=== PATIENT | female | born 1960 | race Two or more races ===

== ENCOUNTER 2016-07-26 07:42 | Emergency (ER) | payer MEDICAID ==
[~2016-07-26] VITALS: Ht 165.1 cm; Wt 81.6 kg
[2016-07-26] MEDS ORDERED: Ketorolac 60mg Inj IM ONE (08:15)
[2016-07-26 09:15] LABS: APPEARANCE,URINE CLEAR; KETONES,URINE NEGATIVE (NEGATIVE); LEUKOCYTE ESTERASE ,URINE 1+ (NEGATIVE); NITRITE,URINE NEGATIVE (NEGATIVE); PH,URINE 5 (4.5-8.0); PROTEIN,URINE NEGATIVE (NEGATIVE); UROBILINOGEN,URINE NORMAL MG/DL (0.0-1.0)
[2016-07-26 09:23] LABS: RBC,URINE 0-2 /HPF (0 - 2); SQUAMOUS EPITHELIAL CELL,UR FEW /LPF (NONE/OCC); WBC,URINE 0-2 /HPF (0 - 2)
[2016-07-26 09:24] LABS: BACTERIA,URINE FEW /HPF
[2016-07-26 09:29] LABS: BASOPHILS % (AUTO) 1.3 % (0.0-2.0); EOSINOPHILS % (AUTO) 3.6 % (0.0-3.0); LYMPHOCYTES % (AUTO) 33.3 % (20.0-45.0); MEAN CORPUSCULAR HEMOGLOBIN 29.6 PG (27.0-31.0); MEAN CORPUSCULAR HGB CONC 32.3 G/DL (32.0-36.0); MEAN CORPUSCULAR VOLUME 92 FL (80-99); MEAN PLATELET VOLUME 7.9 FL (6.5-10.1); MONOCYTES % (AUTO) 6.2 % (1.0-10.0); NEUTROPHILS % (AUTO) 55.7 % (45.0-75.0); PLATELET COUNT 245 K/UL (150-450); RED BLOOD COUNT 4.63 M/UL (4.20-5.40); RED CELL DISTRIBUTION WIDTH 11.9 % (11.6-14.8); WHITE BLOOD COUNT 5.2 K/UL (4.8-10.8)
[2016-07-26 09:41] LABS: ALANINE AMINOTRANSFERASE 31 U/L (3-33); ALBUMIN/GLOBULIN RATIO 1.3 (1.0-2.7); ANION GAP 15 (5-15); ASPARTATE AMINO TRANSFERASE 28 U/L (5-40); CALCIUM 9.7 mg/dL (8.6-10.2); CARBON DIOXIDE 24 mEQ/L (20-30); CHLORIDE 103 mEQ/L (98-107); CREATININE 0.6 mg/dL (0.5-0.9); GLOMERULAR FILTRATION RATE > 60 mL/min (>60); HEMOLYSIS 2; SODIUM 142 mEQ/L (135-145); TOTAL PROTEIN 7.1 g/dL (6.6-8.7)
[2016-07-26 10:13] VITALS: BP 145/75
[2016-07-26] MEDS ORDERED: Norco 5mg/325mg tab ORAL ONE (11:30)
--- NOTE | 2016-07-26 11:33 | Diagnostic Imaging Report ---
Indication: Back pain Comparison: None Findings: 3 views of the lumbar spine were obtained. Multilevel narrowing of intervertebral disks and associated endplate and Facet osteophytes are present. No malalignment identified. No acute fracture definitely seen. Impression: Mild spondylosis. No acute injury appreciated.
[2016-07-26 13:30] VITALS: BP 135/77
--- NOTE | 2016-07-26 14:15 | Diagnostic Imaging Report ---
Indication: Back pain Technique: MRI examination of the Lumbar spine was performed in a 1.5 Aspen magnet. Sequences obtained include sagittal and axial T1 and T2 fast spin echo, and sagittal STIR. No IV gadolinium was given Comparison: none Findings: T12-L1 demonstrates narrowing and desiccation of the disc. There is a right paracentral/far lateral disc protrusion. There is slight narrowing of the right lateral recess and neural foramen. Conus medullaris is noted and appears normal as does the visualized part of the distal spinal cord. Cauda equina is unremarkable. L1-2 is unremarkable except for hypertrophy facets which appear moderate at this level. L2-3 demonstrates a concentric wide based bulge. There is moderate facet arthropathy at this level. Desiccation and narrowing of intervertebral disc noted. Mild central stenosis and moderate narrowing of the lateral recess demonstrated as well as mild bilateral foraminal stenosis. L3-4: Disc desiccation and narrowing, concentric disc bulge demonstrated. Hypertrophied facets demonstrated. A moderate central spinal stenosis, moderate lateral recess stenosis and foraminal stenosis demonstrated bilaterally worse on the left. L4-5: Disc desiccation and narrowing, moderate facet arthropathy concentric disc bulge, moderate to severe central and lateral recess stenosis and neural foraminal narrowing. L5-S1: Relatively normal height of the disc which appears partially desiccated. There is a concentric disc bulge present. Moderate facet hypertrophy noted. There is no central canal stenosis. There is moderate narrowing of the lateral recess and moderate to severe foraminal stenosis. Bone marrow signal and overall lumbar spine alignment appear normal. There is no evidence of fracture or other evidence of acute injury. Spinal ligaments are grossly unremarkable in appearance. There is no soft tissue swelling or abnormal fluid collections. Impression: No evidence of acute injury. No evidence of compression of the cord or cauda equina. Moderate to severe central, lateral recess and neural foraminal stenosis of varying degrees at different levels due to chronic degenerative factors. Findings discussed with Dr. Renee Pradhan via telephone.
--- NOTE | 2016-07-26 14:35 | Emergency Room Report ---
History of Present Illness General Chief Complaint: Lower Back Pain or Injury Source: Patient Present Illness HPI Patient states that she has had ongoing back pain. She states that over the past 3 weeks the pain has been more severe. She is a has pain shooting down her left leg. She states she also has pain in her left buttock. She states that her left leg is weak and has given out on her and has caused her to fall. She denies fever or chills. She denies recent trauma. She denies loss of bowel or bladder control. She denies dysuria or hematuria. She also states that she has abdominal pain. She states this is been chronic and ongoing. Of note: This history was obtained via the rehabilitation physician phone. Allergies: Coded Allergies: No Known Allergies (Unverified , 07/26/16) Patient History Past Medical History: see triage record, HTN, other - HLP Social History: Denies: alcohol use, drug use, smoking Reviewed Nursing Documentation: PMH: Agreed, PSxH: Agreed Nursing Documentation-PMH Past Medical History: No History, Except For Hx Hypertension: Yes Review of Systems All Other Systems: negative except mentioned in HPI Physical Exam Vital Signs Date Time Temp Pulse Resp B/P Pulse Ox O2 Delivery O2 Flow Rate FiO2 07/26/16 07:49 97.5 71 18 144/77 98 Room Air Sp02 EP Interpretation: reviewed, normal General Appearance: no apparent distress, alert, GCS 15, non-toxic Head: normocephalic, atraumatic Eyes: bilateral eye PERRL, bilateral eye normal inspection ENT: hearing grossly normal, normal pharynx, no angioedema, normal voice Neck: full range of motion, supple/symm/no masses Respiratory: chest non-tender, lungs clear, normal breath sounds, speaking full sentences Cardiovascular #1: regular rate, rhythm, no edema Gastrointestinal: normal bowel sounds, soft, non-distended, no guarding, no rebound, tenderness - Mild ttp diffusely Rectal: deferred Genitourinary: no CVA tenderness Musculoskeletal: back normal, normal range of motion, other - TTP over the L. piriformis m. Neurologic: alert, oriented x3, responsive, sensory intact, speech normal, motor weakness - LLE hip flexion, knee extension, plantar flexion 4/5 MS. Psychiatric: judgement/insight normal, memory normal, mood/affect normal, no suicidal/homicidal ideation Skin: normal color, no rash, warm/dry, well hydrated Medical Decision Making Diagnostic Impression: Primary Impression: Spinal stenosis of lumbar region Additional Impressions: Sciatica of left side Abdominal pain ER Course This patient presented with back pain and left leg weakness. Given the difference in strength between the 2 legs, I felt that I should obtain an MRI of the lumbar spine to further assess the spinal cord. MRI of the lumbar spine showed significant spinal stenosis from L2-L5. The patient also has symptoms of sciatica and piriformis syndrome. Regardless, there is no acute findings. The patient also complained of abdominal pain, as obtain a CT of the abdomen and pelvis and there was no acute findings either. The patient is noted to have a left kidney stone but this is inside the kidney are not the patient's symptoms. Laboratory workup on this patient is benign to include CBC, CMP and urinalysis. At this time, I did not identify an emergency medical condition. The patient is instructed to follow up closely with an orthopedist and her primary care physician. Labs Test 07/26/16 08:30 07/26/16 09:09 Urine Color Pale yellow Urine Appearance Clear Urine pH 5 (4.5-8.0) Urine Specific [place] 1.010 (1.005-1.035) Urine Protein Negative (NEGATIVE) Urine Glucose (UA) Negative (NEGATIVE) Urine Ketones Negative (NEGATIVE) Urine Occult Blood Negative (NEGATIVE) Urine Nitrite Negative (NEGATIVE) Urine Bilirubin Negative (NEGATIVE) Urine Urobilinogen Normal MG/DL (0.0-1.0) Urine Leukocyte Esterase 1+ (NEGATIVE) Urine RBC 0-2 /HPF (0 - 2) Urine WBC 0-2 /HPF (0 - 2) Urine Squamous Epithelial Cells Few /LPF (NONE/OCC) Urine Bacteria Few /HPF (NONE) White Blood Count 5.2 K/UL (4.8-10.8) Red Blood Count 4.63 M/UL (4.20-5.40) Hemoglobin 13.7 G/DL (12.0-16.0) Hematocrit 42.4 % (37.0-47.0) Mean Corpuscular Volume 92 FL (80-99) Mean Corpuscular Hemoglobin 29.6 PG (27.0-31.0) Mean Corpuscular Hemoglobin Concent 32.3 G/DL (32.0-36.0) Red Cell Distribution Width 11.9 % (11.6-14.8) Platelet Count 245 K/UL (150-450) Mean Platelet Volume 7.9 FL (6.5-10.1) Neutrophils (%) (Auto) 55.7 % (45.0-75.0) Lymphocytes (%) (Auto) 33.3 % (20.0-45.0) Monocytes (%) (Auto) 6.2 % (1.0-10.0) Eosinophils (%) (Auto) 3.6 % (0.0-3.0) Basophils (%) (Auto) 1.3 % (0.0-2.0) Erythrocyte Sedimentation Rate 18 MM/HR (0-30) Sodium Level 142 mEQ/L (135-145) Potassium Level 4.0 mEQ/L (3.4-4.9) Chloride Level 103 mEQ/L (98-107) Carbon Dioxide Level 24 mEQ/L (20-30) Anion Gap 15 (5-15) Blood Urea Nitrogen 16 mg/dL (7-23) Creatinine 0.6 mg/dL (0.5-0.9) Estimat Glomerular Filtration Rate > 60 mL/min (>60) Glucose Level 122 mg/dL (74-106) Calcium Level 9.7 mg/dL (8.6-10.2) Total Bilirubin 0.2 mg/dL (0.0-1.2) Aspartate Amino Transf (AST/SGOT) 28 U/L (5-40) Alanine Aminotransferase (ALT/SGPT) 31 U/L (3-33) Alkaline Phosphatase 79 U/L (35-104) C-Reactive Protein, Quantitative < 0.3 mg/dL (< 0.5) Total Protein 7.1 g/dL (6.6-8.7) Albumin 4.1 g/dL (3.5-5.2) Globulin 3.0 g/dL Albumin/Globulin Ratio 1.3 (1.0-2.7) Other X-Ray Diagnostic Results Other X-Ray Diagnostic Results : X-Ray Ordered: Lspine EP Interpretation: No Findings: no fractures, no dislocation Number of Views: 3 PA Scribe Text Impression: Mild spondylosis. No acute injury appreciated. CT/MRI/US Diagnostic Results CT/MRI/US Diagnostic Results : Imaging Test Ordered: MRI L-spine, CT abd/pelvis Impression No evidence of acute injury. No evidence of compression of the cord or cauda equina. Moderate to severe central, lateral recess and neural foraminal stenosis of varying degrees at different levels due to chronic degenerative factors. CT ABD/PELVIS: No acute findings. See official report. Last Vital Signs Date Time Temp Pulse Resp B/P Pulse Ox O2 Delivery O2 Flow Rate FiO2 07/26/16 12:31 98.7 07/26/16 10:13 60 18 145/75 99 Room Air Disposition: HOME, SELF-CARE Condition: Improved Referrals: NOT CHOSEN IPA/MD,REFERRING (PCP) Patient Instructions: Back Pain, Adult RESHMA ENGLAND D.O. July 26, 2016 14:35
[2016-07-26] MEDS ORDERED: IBUPROFEN600 MG ORAL (14:38)
[2016-07-26] MEDS ORDERED: TRAMADOL HCL50 MG ORAL (14:38)
[2016-07-26] MEDS ORDERED: GABAPENTIN100 MG ORAL (14:38)
--- NOTE | 2016-07-26 15:15 | Diagnostic Imaging Report ---
Indication: Abdominal pain Technique: Continuous helical transaxial imaging of the abdomen and pelvis was obtained from the lung bases to the pubic symphysis during intravenous contrast administration. Coronal 2-D reformats were also obtained. Study obtained in a Siemens sensation [address] Total Dose length Product (DLP): [address] Dose Index Volume (CTDIvol): 19 mGy Comparison: None Findings: The lung bases are clear. There is small hiatal hernia. Gallbladder is unremarkable. There is a nonobstructive stone demonstrated within the lower pole the left kidney measuring 9 mm. Tiny cyst noted in the upper pole left kidney. There is no hydronephrosis. Aorta is mildly calcified. Uterus is absent. Urinary bladder is unremarkable. The appendix is retrocecal. There is focal dilatation of the tip of the appendix which measures up to 8-9 mm. There is no inflammation seen. There is narrowing of intervertebral discs and accompanying endplate osteophyte formation. Hypertrophied facet joints also demonstrated.. Impression: 9 mm nonobstructive stone in the left kidney. Focal dilatation of the tip of the appendix without associated inflammation. Doubt early acute appendicitis, but please correlate clinically. Spondylosis Tiny left renal cyst Small hiatal hernia Mild atherosclerotic vascular disease Status post hysterectomy The CT scanner at [facility] is accredited by the [employer] and the scans are performed using dose optimization techniques as appropriate to a performed exam including Automatic Exposure control.
[2016-07-26 15:51] VITALS: BP 145/84
== END 2016-07-26 15:50 | disposition home or self-care (01) ==
LOC: EMR 08:08
DX: M48.06 Spinal stenosis, lumbar region (principal); N20.0 Calculus of kidney; N28.1 Cyst of kidney, acquired; Z90.710 Acquired absence of both cervix and uterus
CPT/HCPCS: 36415; 72110; 72148; 74177; 80053; 81003; 85025; 85651; 86140; 96360; 96374; 99284; Q9967

== ENCOUNTER 2016-08-17 17:42 | Emergency (ER) | payer MEDICAID ==
[~2016-08-17] VITALS: Ht 165.1 cm; Wt 82.6 kg
[~2016-08-17 17:42] MED LIST: GABAPENTIN100 MG ORAL; IBUPROFEN600 MG ORAL; TRAMADOL HCL50 MG ORAL
[2016-08-17] MEDS ORDERED: GABAPENTIN300 MG ORAL (18:06)
[2016-08-17] MEDS ORDERED: Norco 10mg/325mg tab ORAL ONE (18:30)
[2016-08-17] MEDS ORDERED: NORCO 5-325 TA1 EAC1 ORAL (18:41)
[2016-08-17 18:47] VITALS: BP 143/85
[2016-08-17] MEDS ORDERED: Ketorolac 30mg Inj IM ONE (19:00)
[2016-08-17 19:09] VITALS: BP 143/85
--- NOTE | 2016-08-17 21:21 | Emergency Room Report ---
History of Present Illness General Chief Complaint: Lower Back Pain or Injury Present Illness HPI The patient is a 55-year-old female presenting for back pain. The patient states that she fell 4 months prior and injured her back. She obtained an xray and MRI which was unremarkable. She was placed in a back brace and given Motrin. She states that pain medication has not been helping and pain has been increasing. Is now described as a 10 out of 10 dull ache of the lower back and radiates to the buttock. Pain worse with movement. She denies any recent injury. She denies N, V, F, chills numbness/tingling, dysuria, abd pain, SOB Allergies: Coded Allergies: No Known Allergies (Unverified , 07/26/16) Patient History Past Medical History: see triage record Pertinent Family History: none Reviewed Nursing Documentation: PMH: Agreed, PSxH: Agreed Nursing Documentation-PMH Hx Hypertension: Yes Review of Systems All Other Systems: negative except mentioned in HPI Physical Exam Vital Signs Date Time Temp Pulse Resp B/P Pulse Ox O2 Delivery O2 Flow Rate FiO2 08/17/16 18:02 97.9 69 16 143/85 98 Room Air Sp02 EP Interpretation: reviewed, normal General Appearance: no apparent distress, alert, GCS 15, non-toxic Head: normocephalic, atraumatic Eyes: bilateral eye PERRL, bilateral eye normal inspection ENT: hearing grossly normal, normal pharynx, no angioedema, normal voice Neck: full range of motion, supple/symm/no masses Gastrointestinal: normal bowel sounds, non tender, soft, non-distended, no guarding, no rebound Musculoskeletal: normal range of motion, other - slow gait, tender - diffuse over L spine Neurologic: alert, oriented x3, responsive, sensory intact Psychiatric: judgement/insight normal, memory normal, mood/affect normal, no suicidal/homicidal ideation Skin: normal color, no rash, warm/dry, well hydrated Lymphatic: no adenopathy Medical Decision Making PA Attestation Dr. Verma is my supervising physician. Patient management was discussed with my supervising physician Diagnostic Impression: Primary Impression: Low back pain Qualified Codes: M54.5 - Low back pain ER Course The patient is a 55-year-old female presenting for back pain. Ddx considered include but not limited to lumbar strain, degenerative disease, cauda equina, chronic pain, among others PE: vitals WNL. NAD Back: diffuse TTP over L spine. Appears normal. Slow gait. SILT of lower extremity Pt is given pain medication and feels better. She ambulates to restroom without difficulty. She'll be discharged home and informed that she may need MRI. She will follow up with PMD as soon as possible ER precautions given Last Vital Signs Date Time Temp Pulse Resp B/P Pulse Ox O2 Delivery O2 Flow Rate FiO2 08/17/16 19:09 97.9 69 16 143/85 98 Room Air Status: improved Disposition: HOME, SELF-CARE Condition: Improved Scripts Hydrocodone Bit/Acetaminophen 5-325* (NORCO 5-325 TABLET*) 1 Each Tablet 1 TAB ORAL Q6HR Y for For Pain, #10 TAB Prov: YENNI WRIGHT 08/17/16 Patient Instructions: Back Pain, Adult Additional Instructions: I discussed my findings with the patient. All questions and concerns have been answered. Treatment and medication compliance have been addressed. I advised the patient that they need to follow up with PMD in 3-5 days. Return to ED if pain remains or worsens, numbness or tingling occurs, new rash is noticed, fever is noticed, or if needed for any reason. Patient verbalized understanding of discharge instructions. The patient will have to follow up with primary doctor and may need MRI YENNI WRIGHT Aug 17, 2016 21:21
== END 2016-08-17 19:12 | disposition home or self-care (01) ==
LOC: EMR 18:23
DX: M54.5 Low back pain (principal); I10 Essential (primary) hypertension
CPT/HCPCS: 96372; 99283; J1885